=== PATIENT | male | born 1960 | race Caucasian/White ===

== ENCOUNTER 2017-10-15 14:58 | Emergency (ER) | payer MEDICAID ==
[~2017-10-15] VITALS: Ht 190.5 cm; Wt 109.1 kg
[2017-10-15] MEDS ORDERED: normal saline 1000ML IV soln IVB ONE (19:20)
[2017-10-15] MEDS ORDERED: pantoprazole 40 MG vial IV ONE (19:20)
[2017-10-15] MEDS ORDERED: ipratropium/albuterol 3ml nebule NEB ONE (19:30)
[2017-10-15] MEDS ORDERED: CALC-1197 PO (19:44)
[2017-10-15] MEDS ORDERED: DIAZ5TAB PO (19:44)
[2017-10-15] MEDS ORDERED: OXYC-150 PO (19:44)
[2017-10-15] MEDS ORDERED: FLUT1DIS4 INH (19:44)
[2017-10-15] MEDS ORDERED: ZIN220C PO (19:44)
[2017-10-15] MEDS ORDERED: NADO20TA PO (19:44)
[2017-10-15] MEDS ORDERED: ALBU8.5H8 INH (19:44)
[2017-10-15] MEDS ORDERED: MAGN400C PO (19:44)
[2017-10-15] MEDS ORDERED: SPIR25TA5 PO ×2 (19:44→22:15)
[2017-10-15] MEDS ORDERED: MORP30CA16 PO (19:44)
[2017-10-15 19:50] LABS: BASOPHILS % (AUTO) 0.2 % (0-1); EOSINOPHILS # (AUTO) 0.1 X10'3 (0-0.9); EOSINOPHILS % (AUTO) 4.2 % (0-6); HEMATOCRIT 31.7 % (42.0-52.0); HEMOGLOBIN 10.9 g/dl (14.0-17.9); LYMPHOCYTES # (AUTO) 0.6 X10'3 (1.1-4.8); LYMPHOCYTES % (AUTO) 19.6 % (21-51); MEAN CORPUSCULAR HEMOGLOBIN 33.4 PG (27.0-31.0); MEAN CORPUSCULAR HGB CONC 34.6 % (33.0-36.5); MEAN CORPUSCULAR VOLUME 96.7 FL (78-98); MEAN PLATELET VOLUME 6.7 FL (7.4-10.4); MONOCYTES # (AUTO) 0.4 X10'3 (0-0.9); NEUTROPHILS # (AUTO) 2.1 X10'3 (1.8-7.7); RED BLOOD COUNT 3.28 X10'6 (4.70-6.10); RED CELL DISTRIBUTION WIDTH 15.7 % (11.5-14.5); WHITE BLOOD COUNT 3.2 X10'3 (4.5-11.0)
[2017-10-15 19:55] LABS: INR 1.3 INR; PARTIAL THROMBOPLASTIN TIME 29 SECONDS (22-32); PROTHROMBIN TIME 13.2 SECONDS (9.0-12.0)
[2017-10-15 19:58] LABS: ALANINE AMINOTRANSFERASE 33 U/L (12-78); ALBUMIN 3.3 G/DL (3.4-5.0); ALKALINE PHOSPHATASE 77 IU/L (46-116); ANION GAP 8 (8-16); ASPARTATE AMINO TRANSFERASE 63 U/L (10-37); BILIRUBIN,TOTAL 2.5 MG/DL (0.1-1.0); BLOOD UREA NITROGEN 7 MG/DL (7-18); BUN/CREATININE RATIO 9.6 (5.4-32.0); CALCIUM 8.8 MG/DL (8.5-10.1); CHLORIDE 106 MMOL/L (99-107); CREATININE 0.73 MG/DL (0.60-1.10); GLUCOSE 92 MG/DL (70-104); POTASSIUM 3.6 MMOL/L (3.5-5.1); SODIUM 142 MMOL/L (135-145); TOTAL CARBON DIOXIDE 27.8 MMOL/L (24-32); TOTAL PROTEIN 6.6 G/DL (6.4-8.2); eGFR > 90 ML/MIN
[2017-10-15 20:05] LABS: MAGNESIUM 1.7 MG/DL (1.5-2.4); PLATELET COUNT 50 X10'3 (140-440)
[2017-10-15 21:49] LABS: CLARITY,URINE CLEAR (Clear); COLOR,URINE YELLOW (Yellow); GLUCOSE, URINE NEGATIVE (Neg); KETONES,URINE NEGATIVE (Neg); LEUKOCYTE ESTERASE ,URINE NEGATIVE (Neg); NITRITES, URINE NEGATIVE (Neg); OCCULT BLOOD,URINE NEGATIVE (Neg); PROTEIN,URINE NEGATIVE (Neg)
[2017-10-15 21:52] LABS: URINE AMPHETAMINE SCREEN NEGATIVE (Neg); URINE BARBITUATE SCREEN NEGATIVE (Neg); URINE BENZODIAZEPINES SCREEN NEGATIVE (Neg); URINE CANNABINOID SCREEN NEGATIVE (Neg); URINE COCAINE SCREEN NEGATIVE (Neg); URINE METHADONE SCREEN NEGATIVE (Neg); URINE OPIATE SCREEN NEGATIVE (Neg); URINE PHENCYCLIDINE SCREEN NEGATIVE (Neg)
[2017-10-15 21:55] LABS: UA COLLECTION TYPE CLN CATCH MIDSTREAM
[2017-10-15] MEDS ORDERED: prednisone 10mg tablet PO STA (22:07)
[2017-10-15] MEDS ORDERED: doxycycline hyclate 100mg tablet.DR PO STA (22:07)
[2017-10-15] MEDS ORDERED: predniSONE 5mg tablet PO STA (22:11)
[2017-10-15] MEDS ORDERED: DOXY100C43 PO (22:15)
[2017-10-15] MEDS ORDERED: PRED50TA PO (22:15)
[2017-10-15 22:19] VITALS: BP 129/85
[2017-10-15 22:56] LABS: OCCULT BLOOD STOOL NEGATIVE (Neg)
== END 2017-10-15 22:23 | disposition home or self-care (01) ==
LOC: ER 15:00
DX: J44.1 Chronic obstructive pulmonary disease with (acute) exacerbation (principal); J18.1 Lobar pneumonia, unspecified organism; D69.6 Thrombocytopenia, unspecified; R60.9 Edema, unspecified; R00.0 Tachycardia, unspecified; I44.7 Left bundle-branch block, unspecified; F17.210 Nicotine dependence, cigarettes, uncomplicated; K21.9 Gastro-esophageal reflux disease without esophagitis; Z98.890 Other specified postprocedural states; Z79.899 Other long term (current) drug therapy
CPT/HCPCS: 36415; 71046; 80053; 80305; 81003; 82272; 83735; 83880; 84484; 85025; 85610; 85730; 86885; 86900; 86901; 93005; 94640; 94760; 96374; 99285; C9113; J7030; J7512